=== PATIENT | male | born 1995 | race African-American/Black ===

== ENCOUNTER 2024-07-06 22:09 | Emergency (ER) | payer SELFPAY ==
[~2024-07-06] VITALS: Ht 177.8 cm; Wt 90.7 kg
[2024-07-06 23:00] VITALS: TEMP 98.2
[2024-07-06] MEDS: IV NS 0.9% 1,000 ML BAG IV ONE (23:10)
[2024-07-06 23:28] LABS: BASOPHILS % (AUTO) 0.9 % (0.0-2.0); EOSINOPHILS # (AUTO) 0.1 K/uL (0.0-0.7); EOSINOPHILS % (AUTO) 1.4 % (0.0-6.0); HEMATOCRIT 42 % (39-51); HEMOGLOBIN 14.3 g/dL (13.5-17.5); LYMPHOCYTES # (AUTO) 2.1 K/uL (0.8-4.8); MEAN CORPUSCULAR HEMOGLOBIN 31 PG (26.0-33.0); MEAN CORPUSCULAR HGB CONC 34 g/dl (31.0-36.0); MEAN CORPUSCULAR VOLUME 90 fL (80-96); MONOCYTES # (AUTO) 0.4 K/uL (0.1-1.30); MONOCYTES % (AUTO) 8.9 % (2.0-12.0); NEUTROPHILS # (AUTO) 1.8 K/uL (1.8-8.9); NEUTROPHILS % (AUTO) 40.8 % (43.0-81.0); PLATELET COUNT (AUTO) 221 K/uL (150-450); RED BLOOD CELL COUNT(AUTO) 4.62 MIL/uL (4.5-6.0); RED CELL DISTRIBUTION WIDTH 14.4 % (11.5-15.0); WHITE BLOOD COUNT (AUTO) 4.4 K/uL (4.3-11.0)
[2024-07-06 23:39] LABS: APPEARANCE,URINE CLEAR (CLEAR); BILIRUBIN,URINE NEGATIVE (NEGATIVE); BLOOD, URINE NEGATIVE Ery/uL (NEGATIVE); COLOR,URINE YELLOW (YELLOW); KETONES,URINE NEGATIVE (NEGATIVE); LEUKOCYTE ESTERASE ,URINE NEGATIVE (NEGATIVE); NITRITE, URINE NEGATIVE (NEGATIVE); PROTEIN,URINE NEGATIVE (NEGATIVE); UGLUCOSE NEGATIVE (NEGATIVE); UROBILINOGEN,URINE 0.2 EU/dL (0.2)
[2024-07-06 23:54] LABS: CALCIUM, SERUM 9.3 mg/dL (8.5-10.1); POTASSIUM 3.8 mmol/L (3.5-5.1)
[2024-07-07 00:03] LABS: ALBUMIN 4.5 g/dL (3.4-5.0); BILIRUBIN,DIRECT 0.1 mg/dL (0.0-0.2); BILIRUBIN,TOTAL 1.2 mg/dL (0.2-1.0)
[2024-07-07] MEDS ORDERED: FLUC150T PO (00:08)
[2024-07-07] MEDS ORDERED: DOXY-326 PO (00:08)
[2024-07-07] MEDS ORDERED: IBUP-1490 PO (00:08)
[2024-07-07 00:15] VITALS: BP 139/94; O2SAT 99
== END 2024-07-07 00:24 | disposition home or self-care (01) ==
LOC: ER 22:12
DX: N34.2 Other urethritis (principal)
CPT/HCPCS: 99284; 74176; 96360; 85025; 80048; 83690; 80076; 81003; 36415; J7030

== ENCOUNTER 2024-09-01 04:16 | Emergency (ER) | payer MEDICAID ==
[~2024-09-01] VITALS: Ht 177.8 cm; Wt 90.7 kg
[~2024-09-01 04:16] MED LIST: DOXY-326 PO; FLUC150T PO; IBUP-1490 PO
[2024-09-01 04:24] VITALS: BP 146/83; TEMP 97.8; O2SAT 99
[2024-09-01 05:35] LABS: APPEARANCE,URINE CLEAR (CLEAR); BILIRUBIN,URINE NEGATIVE (NEGATIVE); BLOOD, URINE NEGATIVE Ery/uL (NEGATIVE); COLOR,URINE YELLOW (YELLOW); KETONES,URINE TRACE mg/dL (NEGATIVE); LEUKOCYTE ESTERASE ,URINE NEGATIVE (NEGATIVE); NITRITE, URINE NEGATIVE (NEGATIVE); PROTEIN,URINE NEGATIVE (NEGATIVE); UGLUCOSE NEGATIVE (NEGATIVE); UROBILINOGEN,URINE 0.2 EU/dL (0.2)
[2024-09-01 05:38] LABS: ADD URINE CULTURE NO; BACTERIA,URINE None seen /HPF (None Seen); RBC,URINE NONE SEEN /HPF (0-2); SQUAMOUS EPITHELIAL CELL,UR None Seen /HPF (None Seen); WBC,URINE NONE SEEN /HPF (0-3)
== END 2024-09-01 05:54 | disposition home or self-care (01) ==
LOC: ER 04:20
DX: N48.89 Other specified disorders of penis (principal)
CPT/HCPCS: 81001